=== PATIENT | male | born 1985 | race Caucasian/White ===

== ENCOUNTER 2019-05-29 10:01 | Emergency (ER) | payer BC ==
[2019-05-29] MEDS ORDERED: cefTRIAXone 1 GM in Premix Bag 1 BAG IV ONE (10:31)
[2019-05-29 11:45] LABS: BLOOD UREA NITROGEN,BUN 10 mg/dL (7.0-18.0); CARBON DIOXIDE,CO2 27.3 mmol/L (21.0-32.0); CHLORIDE,CL 103 mmol/L (98-107); GLUCOSE RANDOM 88 mg/dL (74-106); POTASSIUM,K 4.1 mmol/L (3.5-5.1); SODIUM,NA 139 mmol/L (136-148)
[2019-05-29] MEDS ORDERED: Iopamidol 755 MG/ML 500 ML Multipack Bottle IVPUSH STA (12:25)
--- NOTE | 2019-05-29 12:46 | CT ---
CT abdomen and pelvis Technique: Multiple axial sections were obtained from above the dome of the diaphragm inferiorly through the pubic symphysis. Intravenous contrast was utilized. No oral contrast has been given. Comparison: No prior abdominal imaging. Findings: Visualized lung bases show nothing acute. Liver contains no focal abnormality. Spleen appears within normal limits. Adrenal glands show no nodule. Pancreas appears within normal limits. Kidneys show no hydronephrosis or mass. Gallbladder contains no calcified gallstones. Aorta shows no aneurysm. No retroperitoneal adenopathy or mesenteric abnormalities are seen. Small fat-containing umbilical hernia is noted. No pelvic mass or adenopathy is seen. No free fluid or inflammatory change is seen. Appendix not visualized with certainty. Bone window setting shows nothing acute within the visualized osseous structures. Impression: 1. Nothing acute is seen on noncontrast CT study of the abdomen and pelvis. 2. No abscess is identified. Diagnostic code #1 This report was dictated in [place] Standard Time
--- NOTE | 2019-05-29 14:30 | EDM.PDOC ---
ED HPI GENERAL MEDICAL PROBLEM - General Chief Complaint: Skin Complaint Stated Complaint: BOIL Time Seen by Provider: 05/29/19 13:32 Source of Information: Reports: Patient History Limitations: Reports: No Limitations - History of Present Illness Onset: Gradual (over 2 months.) Location: Reports: Abdomen (lower left abdomen.) Quality: Reports: Other Severity: Mild Improves with: Reports: None Worsens with: Reports: None Associated Symptoms: Reports: No Other Symptoms Left Lower abdomen Pain Score (Numeric/FACES): 5 - Related Data Allergies Allergy/AdvReac Type Severity Reaction Status Date / Time No Known Allergies Allergy Verified 05/29/19 10:16 Home Meds: Home Meds Cephalexin [Keflex] 500 mg PO BID 7 Days #14 capsule 05/29/19 [Rx] Past Medical History - Past Health History Medical/Surgical History: Denies Medical/Surgical History - Infectious Disease History Infectious Disease History: Reports: None - Past Surgical History Other Musculoskeletal Surgeries/Procedures:: Left hand surgery Social & Family History - Family History Family Medical History: Noncontributory - Tobacco Use Smoking Status *Q: Current Every Day Smoker Years of Tobacco use: 7 Packs/Tins Daily: 1 - Caffeine Use Caffeine Use: Reports: Coffee, Soda - Recreational Drug Use Recreational Drug Use: No ED ROS GENERAL - Review of Systems Review Of Systems: See Below Constitutional: Reports: No Symptoms HEENT: Reports: No Symptoms Respiratory: Reports: No Symptoms Cardiovascular: Reports: No Symptoms Endocrine: Reports: No Symptoms GI/Abdominal: Reports: No Symptoms : Reports: No Symptoms Skin: Reports: Lesions (abscess left lower abdomen area) Neurological: Reports: No Symptoms Psychiatric: Reports: No Symptoms Hematologic/Lymphatic: Reports: No Symptoms Immunologic: Reports: No Symptoms ED EXAM, SKIN/RASH Exam: See Below Text/Narrative:: This 33 year old male is admitted to the ED with a chief complaint of a abscess in his left lower abdomen that has gotten worse over the past two months. He denies any other complaints. Exam Limited By: No Limitations General Appearance: Alert, WD/WN, No Apparent Distress Eye Exam: Bilateral Eye: Normal Fundi, Normal Inspection, PERRL Ears: Normal External Exam, Normal Canal, Hearing Grossly Normal, Normal TMs Nose: Normal Inspection, Normal Mucosa, No Blood Throat/Mouth: Normal Inspection, Normal Lips, Normal Teeth, Normal Gums, Normal Oropharynx, Normal Voice, No Airway Compromise Head: Atraumatic, Normocephalic Neck: Normal Inspection, Supple, Non-Tender, Full Range of Motion Respiratory/Chest: No Respiratory Distress, Lungs Clear, Normal Breath Sounds, No Accessory Muscle Use, Chest Non-Tender Cardiovascular: Normal Peripheral Pulses, Regular Rate, Rhythm, No Edema, No Gallop, No JVD, No Murmur, No Rub Peripheral Pulses: 2+: Radial (L), 3+: Carotid (L), Carotid (R), Radial (R), Dorsalis Pedis (L), Dorsalis Pedis (R) GI/Abdominal: Normal Bowel Sounds, Soft, Non-Tender, No Organomegaly, Other ( 2.5 X 1.6 inch abscess is noted that is superficial. This will be I&D'ed and packed with gauze.). No: Guarding, Rigid, Rebound Back Exam: Normal Inspection, Full Range of Motion, NT Extremities: Normal Inspection, Normal Range of Motion, Non-Tender, No Pedal Edema, Normal Capillary Refill Neurological: Alert, Oriented, CN II-XII Intact, Normal Cognition, Normal Gait, Normal Reflexes, No Motor/Sensory Deficits Psychiatric: Normal Affect, Normal Mood Skin: Warm, Dry, Intact, Wound/Incision (As noted above.) Location, Skin: Other (As noted in lower left abdomen area.) Characteristics: Confluent Associated features: Warmth, Tenderness (over abscess area.), Swelling Lymphatic: No Adenopathy ED SKIN PROCEDURES - I&D Site: left lower abdominal wall Skin Prep: Providone-Iodine (Betadine) Local Anesthesia: Lidocaine: Other (No meds.) Area Incised With: 11 Blade Drainage: Bloody (with small amount of yellow purulent fluid was removed that was approx. 45ml) Probed to Break Up Loculations: Yes Packed With: 1/4 in. Iodoform Sterile Dressing: Adhesive Dressing (The wound was packed with 36" of 1/4 inch Iodoform and dressed with sterile gauze.) Complications: No Course - Vital Signs Text/Narrative:: The abscess was drained and mostly blood clots was removed. See Procedure note. Last Recorded V/S: Last Vital Signs Temp 97.8 F 05/29/19 10:17 Pulse 93 05/29/19 10:17 Resp 18 05/29/19 10:17 BP 179/112 H 05/29/19 10:17 Pulse Ox 97 05/29/19 10:17 - Orders/Labs/Meds Orders: Active Orders 24 hr Category Date Time Status CULTURE BLOOD [BC] Stat Lab 05/29/19 11:10 Received CULTURE BLOOD [BC] Stat Lab 05/29/19 11:32 Received UA RFX KISHORE AND CULT IF INDIC [URIN] Stat Lab 05/29/19 10:30 Ordered Blood Culture x2 Reflex Set [OM.PC] Stat Oth 05/29/19 10:31 Ordered Labs: Laboratory Tests 05/29/19 05/29/19 05/29/19 Range/Units 11:10 11:10 11:10 WBC 10.57 (4.0-11.0) K/uL RBC 5.42 (4.50-5.90) M/uL Hgb 15.5 (13.0-17.0) g/dL Hct 46.3 (38.0-50.0) % MCV 85.4 (80.0-98.0) fL MCH 28.6 (27.0-32.0) pg MCHC 33.5 (31.0-37.0) g/dL RDW Std Deviation 42.4 (28.0-62.0) fl RDW Coeff of Sharlene 14 (11.0-15.0) % Plt Count 257 (150-400) K/uL MPV 9.80 (7.40-12.00) fL Neut % (Auto) 67.5 (48.0-80.0) % Lymph % (Auto) 19.3 (16.0-40.0) % [place] % (Auto) 12.2 (0.0-15.0) % Eos % (Auto) 0.8 (0.0-7.0) % Baso % (Auto) 0.2 (0.0-1.5) % Neut # (Auto) 7.1 H (1.4-5.7) K/uL Lymph # (Auto) 2.0 (0.6-2.4) K/uL [place] # (Auto) 1.3 H (0.0-0.8) K/uL Eos # (Auto) 0.1 (0.0-0.7) K/uL Baso # (Auto) 0.0 (0.0-0.1) K/uL Nucleated RBC % 0.0 /100WBC Nucleated RBCs # 0 K/uL Lactate 0.8 (0.20-2.00) mmol/L Sodium 139 (136-148) mmol/L Potassium 4.1 (3.5-5.1) mmol/L Chloride 103 (98-107) mmol/L Carbon Dioxide 27.3 (21.0-32.0) mmol/L BUN 10 (7.0-18.0) mg/dL Creatinine 0.9 (0.8-1.3) mg/dL Est Cr Clr Drug Dosing 130.53 mL/min Estimated GFR (MDRD) > 60.0 ml/min Glucose 88 (74-106) mg/dL Calcium 8.8 (8.5-10.1) mg/dL Total Bilirubin 0.6 (0.2-1.0) mg/dL AST 18 (15-37) IU/L ALT 45 (14-63) IU/L Alkaline Phosphatase 87 (46-116) U/L Total Protein 7.2 (6.4-8.2) g/dL Albumin 3.4 (3.4-5.0) g/dL Globulin 3.8 (2.6-4.0) g/dL Albumin/Globulin Ratio 0.9 (0.9-1.6) Meds: Medications Discontinued Medications Generic Name Dose Route Start Last Admin Trade Name Freq PRN Reason Stop Dose Admin Ceftriaxone Sodium/Dextrose 1 50 mls @ 100 mls/hr 05/29/19 10:31 05/29/19 11: 37 gm/ Premix IV 05/29/19 11:00 100 mls/hr ONETIME ONE Administration Iopamidol 100 ml 05/29/19 12:25 05/29/19 12:26 Isovue Multipack-370 (76%) IVPUSH 05/29/19 12:26 100 ml ONETIME STA Administration Departure - Departure Time of Disposition: 15:32 Disposition: Home, Self-Care 01 Condition: Good Clinical Impression: Abscess of abdominal wall - Discharge Information *PRESCRIPTION DRUG MONITORING PROGRAM REVIEWED*: Yes *COPY OF PRESCRIPTION DRUG MONITORING REPORT IN PATIENT JESSE: Yes Instructions: Skin Abscess, Incision and Drainage, Care After Referrals: PCP,None [Primary Care Provider] - Forms: ED Department Discharge Additional Instructions: Take all medications as directed. Warm compresses to the involved area for the next 2-3 days (30 minutes on and one hour off while awake). Return to the ED to have your drain partially removed (12" on the first visit) in three days. Follow up with your PCP in two to four days. Return to the ED if your condition gets worse. Sepsis Event Note - Evaluation Sepsis Screening Result: No Definite Risk - Focused Exam Vital Signs: Vital Signs Temp Pulse Resp BP Pulse Ox 05/29/19 10:17 97.8 F 93 18 179/112 H 97 Date Exam was Performed: 05/29/19 Time Exam was Performed: 15:25
== END 2019-05-29 15:50 | disposition home or self-care (01) ==
LOC: MW.ED 10:01
DX: L02.211 Cutaneous abscess of abdominal wall (principal); F17.210 Nicotine dependence, cigarettes, uncomplicated
CPT/HCPCS: 10061; 36415; 74177; 80053; 83605; 85025; 87040; 96365; 99284; J0696; Q9967

== ENCOUNTER 2019-06-01 10:53 | Emergency (ER) | payer BC ==
--- NOTE | 2019-06-01 11:06 | EDM.PDOC ---
ED HPI GENERAL MEDICAL PROBLEM - General Chief Complaint: Wound Recheck Stated Complaint: WICK REMOVED Time Seen by Provider: 06/01/19 11:03 Source of Information: Reports: Patient History Limitations: Reports: No Limitations - History of Present Illness INITIAL COMMENTS - FREE TEXT/NARRATIVE: HISTORY AND PHYSICAL: History of present illness: Patient is a 33-year-old male who presents to the emergency room for reevaluation and partial wick removal from an I&D site. Patient was seen in our emergency room earlier this week and had an I&D of the left low abdomen. He was placed on Keflex. He was encouraged to return to have the wound reevaluated in 12 inches of the wick removed. Patient currently has no complaints and states he feels well and has been taking the antibiotic as directed. Patient denies any fever, chills, headache, change in vision, syncope or near syncope. Denies any chest pain, back pain, shortness of breath or cough. Denies any GI or symptoms. Patient has been eating and drinking appropriately. Review of systems: As per history of present illness and below otherwise all systems reviewed and negative. Past medical history: As per history of present illness and as reviewed below otherwise noncontributory. Surgical history: As per history of present illness and as reviewed below otherwise noncontributory. Social history: See social history for further information Family history: As per history of present illness and as reviewed below otherwise noncontributory. Physical exam: General: Well-developed and well-nourished 33-year-old male. Alert and oriented. Nontoxic appearing and in no acute distress. HEENT: Atraumatic, normocephalic, pupils equal and reactive bilaterally, negative for conjunctival pallor or scleral icterus, mucous membranes moist, trachea midline. No drooling or trismus noted. No meningeal signs. No hot potato voice noted. Lungs: Clear to auscultation, breath sounds equal bilaterally, chest nontender. Heart: S1S2, regular rate and rhythm without overt murmur Abdomen: Soft, obese, nontender. SEE SKIN FOR DETAILS. Skin: I&D site noted to LLQ, mild erythema noted around the site, wick noted without excessive drainage. Otherwise skin is intact, warm, dry. No lesions or rashes noted. Extremities: Atraumatic, moves all extremities per self without difficulty or deficits, negative for cords or calf pain. Neurovascular unremarkable. Neuro: Awake, alert, oriented. Cranial nerves II through XII unremarkable. Cerebellum unremarkable. Motor and sensory unremarkable throughout. Exam nonfocal. Notes: Per Dr Alcazar' he wanted the patient reevaluated today and have 12 inches of the wick removed and the area reevaluated and dressed. The I&D site looks good. The patient states he feels much improved since the drainage. Continues to take the Keflex as prescribed. He does have high blood pressure today, stating he has had this for a while and had previously been on medications for this patient did not like the way it made him feel. He declines having this further evaluated or treated. He states he does have a follow-up appointment with his primary care to have the skin reevaluated upon completing his antibiotics. Supportive care measures were reviewed and discussed. Voices understanding and is agreeable to plan of care. Denies any further questions or concerns at this time. Diagnostics: None Therapeutics: Wound Care Prescription: None Impression: Wound re-evaluation, redressing Plan: 1. Keep the area clean and dry. Pull the remainder of the wick out in 2-3 days. Follow up with your primary care provider at the completion of your antibiotic to have your wound re-evaluated. 2. Continue taking your Keflex as prescribed. 3. Return to the ED as needed and as discussed. Definitive disposition and diagnosis as appropriate pending reevaluation and review of above. - Related Data Allergies Allergy/AdvReac Type Severity Reaction Status Date / Time No Known Allergies Allergy Verified 06/01/19 11:12 Home Meds: Home Meds Cephalexin [Keflex] 500 mg PO BID 7 Days #14 capsule 05/29/19 [Rx] Past Medical History - Past Health History Medical/Surgical History: Denies Medical/Surgical History - Infectious Disease History Infectious Disease History: Reports: None - Past Surgical History Other Musculoskeletal Surgeries/Procedures:: Left hand surgery Social & Family History - Family History Family Medical History: Noncontributory - Caffeine Use Caffeine Use: Reports: Coffee, Soda ED ROS GENERAL - Review of Systems Review Of Systems: Comprehensive ROS is negative, except as noted in HPI. ED EXAM, SKIN/RASH Exam: See Below (See dictation) Departure - Departure Time of Disposition: 11:14 Disposition: Home, Self-Care 01 Clinical Impression: Redressing wound - Discharge Information Instructions: Wound Care, Adult Referrals: PCP,None [Primary Care Provider] - Forms: ED Department Discharge Additional Instructions: The following information is given to patients seen in the emergency department who are being discharged to home. This information is to outline your options for follow-up care. We provide all patients seen in our emergency department with a follow-up referral. The need for follow-up, as well as the timing and circumstances, are variable depending upon the specifics of your emergency department visit. If you don't have a primary care physician on staff, we will provide you with a referral. We always advise you to contact your personal physician following an emergency department visit to inform them of the circumstance of the visit and for follow-up with them and/or the need for any referrals to a consulting specialist. The emergency department will also refer you to a specialist when appropriate. This referral assures that you have the opportunity for follow-up care with a specialist. All of these measure are taken in an effort to provide you with optimal care, which includes your follow-up. Under all circumstances we always encourage you to contact your private physician who remains a resource for coordinating your care. When calling for follow-up care, please make the office aware that this follow-up is from your recent emergency room visit. If for any reason you are refused follow-up, please contact the [facility] Emergency Department at and asked to speak to the emergency department charge nurse. [facility] [address] [place] [id number] [facility] [address] [place] [id number] 1. Keep the area clean and dry. Pull the remainder of the dressing wick out in 2 -3 days. Follow up with your primary care provider at the completion of your antibiotic to have your wound re-evaluated. 2. Continue taking your Keflex as prescribed. 3. Return to the ED as needed and as discussed. Sepsis Event Note - Focused Exam Date Exam was Performed: 06/01/19 Time Exam was Performed: 11:13
== END 2019-06-01 11:30 | disposition home or self-care (01) ==
LOC: MW.ED 10:53
DX: Z48.817 Encounter for surgical aftercare following surgery on the skin and subcutaneous tissue (principal)
CPT/HCPCS: 99282